=== PATIENT | female | born 1965 | race Caucasian/White ===

== ENCOUNTER → 2016-12-06 | Outpatient (CLI) | payer MEDICAID, OTHER | LOC: PREOP 05:43 | PROVIDERS: ATTEND Surgery | DX: Z01.818 Encounter for other preprocedural examination (principal); Z12.11 Encounter for screening for malignant neoplasm of colon ==

== ENCOUNTER → 2017-04-26 | Outpatient (CLI) | payer MEDICAID, OTHER ==
[~2017-04-26] VITALS: Ht 170.2 cm; Wt 95.3 kg
[~2017-04-26] MED LIST: BUPR150T14 PO; DULO30CA3 PO; HUM100VI15 SQ; INSU100V5 SQ; LISI40TA PO; LORA10TA7 PO; LOVA40TA2 PO; MELO15TA39 PO; ZOLP5TAB7 PO
== END ==
LOC: PREOP 08:33
PROVIDERS: ATTEND Surgery
DX: Z01.818 Encounter for other preprocedural examination (principal); K52.9 Noninfective gastroenteritis and colitis, unspecified; R19.4 Change in bowel habit

== ENCOUNTER 2017-05-02 12:22 | Day surgery (SDC) | payer MEDICAID, OTHER ==
[~2017-05-02] VITALS: Ht 170.2 cm; Wt 95.3 kg
--- OUTSIDE RECORDS SUMMARY | 2017-05-02 12:26 | XMS REPORT ---
Author JON Glover [facility] Address [address] [facility] [address] [place], [place] [id number] Care Team Providers Care Vp Production Name Role Phone JON KEY PCP Unavailable Allergies and Adverse Reactions Name Reaction Notes NO KNOWN DRUG ALLERGIES Plan of Treatment Not available. Medications Active Name Start Date Estimated Completion Date SIG Comments lovastatin 20 mg oral tablet 11/02/2015 03/31/2016 TAKE ONE TABLET BY MOUTH EVERY DAY WITH THE EVENING MEAL Levemir FlexTouch 100 unit/mL (3 mL) subcutaneous insulin pen 11/02/20152015 inject by subcutaneous route per prescriber's instructions. Insulin dosing requires individualization. for 30 days citalopram 20 mg oral tablet 11/02/2015 05/30/2016 take 1 tablet (20 mg) by oral route once daily for 30 days lisinopril 40 mg oral tablet 11/02/2015 take 1 tablet (40 mg) by oral route once daily loratadine 10 mg oral tablet 11/02/2015 take 1 tablet (10 mg) by oral route once daily Novolog 100 unit/mL subcutaneous solution 11/02/2015 inject by subcutaneous route per prescriber's instructions. Insulin dosing requires individualization. metformin 500 mg oral tablet 12/31/2015 TAKE TWO TABLETS BY MOUTH TWICE DAILY WITH MORNING AND EVENING MEALS OneTouch Ultra Test miscellaneous strip 12/31/2015 USE ONE STRIP TO CHECK GLUCOSE 4 TIMES DAILY OneTouch Delica Lancets 33 gauge miscellaneous misc 12/31/2015 USE ONE TO CHECK GLUCOSE 4 TIMES DAILY Name Start Date Expiration Date SIG Comments losartan 100 mg oral tablet 11/08/2012 12/08/2012 TAKE ONE TABLET BY MOUTH EVERY DAY glipizide 10 mg oral tablet 08/23/2012 09/22/2012 TAKE ONE TABLET BY MOUTH TWICE DAILY BEFORE MEALS Wellbutrin SR 150 mg oral tablet extended release 10/29/2015 01/27/2016 take 1 tablet (150 mg) by oral route 2 times per day for 30 days metformin 500 mg oral tablet 11/02/2015 12/02/2015 TAKE TWO TABLETS BY MOUTH TWICE DAILY WITH MORNING AND EVENING MEALS Problem List Description Status Onset Constipation Active Depression Active Diabetes Mellitus, Type II Active Diarrhea, Functional Active Essential Hypertension Active Kidney Calculus Active Thyroid disorder Active Hyperlipidemia, unspecified Active 07/26/2012 Vital Signs Date Time BP-Sys(mm[Hg] BP-Cristy(mm[Hg]) HR(bpm) RR(rpm) Temp WT HT HC BMI BSA BMI Percentile O2 Sat(%) 10/29/2015 3:20:00 PM 110 mmHg 60 mmHg 76 bpm 18 rpm 98.2 F 232 lbs 68 in 35.28 kg/m2 2.25 m2 97 % 12/25/2012 10:27:00 AM 115 mmHg 60 mmHg 70 bpm 16 rpm 96.4 F 233 lbs 69 in 34.4077 kg/m 2.2683 m 97 % 07/26/2012 9:22:00 AM 140 mmHg 64 mmHg 84 bpm 16 rpm 98.2 F 243 lbs 69 in 35.88 kg/m2 2.32 m2 98 % 07/10/2012 1:39:00 PM 152 mmHg 92 mmHg 91 bpm 18 rpm 97.3 F 242 lbs 69 in 35.7368 kg/m 2.3117 m 97 % Social History Name Description Comments Uses seatbelts Current every day Alcohol Use - Rare Tobacco Never smoker 8th grade Active but no formal exercise History of Procedures Date Ordered Description Order Status 01/29/2016 12:00 AM METABOLIC PANEL TOTAL CA Returned 07/17/2012 12:00 AM MICROALBUMIN SEMIQUANT Reviewed 07/17/2012 12:00 AM ROUTINE VENIPUNCTURE Reviewed 07/17/2012 12:00 AM COMPLETE CBC W/AUTO DIFF WBC Reviewed 07/17/2012 12:00 AM COMPREHEN METABOLIC PANEL Reviewed 07/17/2012 12:00 AM LIPID PANEL Reviewed 07/17/2012 12:00 AM GLYCOSYLATED HEMOGLOBIN TEST Reviewed 07/17/2012 12:00 AM ASSAY THYROID STIM HORMONE Reviewed Results Summary Data and Description Results 07/17/2012 4:42 PM WBC 7.6 RBC 4.78 HGB 14.0 g/dLHCT 41.80 %MCV 87.0 fLMCH 29.30 pgMCHC 33.50 g/dLRDW CV 13.10 %MPV 10.50 fLPLT 303 %NEUT 61.60 %%LYMP 29.0 %%MONO 6.60 %%EOS 2.10 %%BASO 0.70 %#NEUT 4.70 #LYMP 2.21 #MONO 0.50 #EOS 0.16 #BASO 0.05 TSH 1.70 uIU/mLCREAT UR 107.70 mg/dLMICROALBUMIN UR 48.0 ug/ mLALB:CREAT RATIO 45 TRIGLYCERIDES 211.0 mg/dLCHOLESTEROL 238.0 mg/dLHDL 35.0 mg /dLLDL 177.0 mg/dLGLUCOSE 226.0 mg/dLSODIUM 138.0 mmol/LPOTASSIUM 4.70 mmol/ LCHLORIDE 99.0 mmol/LCO2 27.0 mmol/LBUN 22.0 mg/dLCREATININE 0.80 mg/dLSGOT/AST 20.0 IU/LSGPT/ALT 26.0 IU/LALK PHOS 109.0 IU/LTOTAL PROTEIN 7.50 g/dLALBUMIN 4.20 g/dLTOTAL BILI 0.50 mg/dLCALCIUM 9.90 mg/dLeGFR 60 11/23/2015 5:01 PM WBC 11.4 RBC 4.73 HGB 13.80 g/dLHCT 44.0 %MCV 93.0 fLMCH 29.20 pgMCHC 31.40 g/dLRDW CV 12.80 %MPV 9.90 fLPLT 312 %NEUT 78.30 %%LYMP 15.20 %%MONO 5.0 %%EOS 0.50 %%BASO 0.40 %#NEUT 8.93 #LYMP 1.73 #MONO 0.57 #EOS 0.06 #BASO 0.05 MICROALBUMIN UR 11.0 ug/mLEst Avg Glucose 137.0 mg/dLGLUCOSE 137.0 mg/dLSODIUM 139.0 mmol/LPOTASSIUM 5.0 mmol/LCHLORIDE 102.0 mmol/LCO2 27.0 mmol/LBUN 29.0 mg/dLCREATININE 1.0 mg/dLSGOT/AST 17.0 IU/LSGPT/ALT 16.0 IU/LALK PHOS 111.0 IU/LTOTAL PROTEIN 7.80 g/dLALBUMIN 4.40 g/dLTOTAL BILI 0.70 mg/ dLCALCIUM 9.90 mg/dLeGFR 58 TRIGLYCERIDES 115.0 mg/dLCHOLESTEROL 200.0 mg/dLHDL 48.0 mg/dLLDL 138.0 mg/dLTSH 2.550 uIU/mL 01/29/2016 3:01 PM GLUCOSE 265.0 mg/dLSODIUM 138.0 mmol/LPOTASSIUM 4.70 mmol/ LCHLORIDE 104.0 mmol/LCO2 21.0 mmol/LBUN 21.0 mg/dLCREATININE 1.10 mg/dLCALCIUM 9.40 mg/dLeGFR 52 Est Avg Glucose 148.5 mg/dL History Of Immunizations Not available. History of Past Illness Name Date of Onset Comments Essential Hypertension Diabetes Mellitus, Type II Kidney Calculus Depression Constipation Diarrhea, Functional Thyroid disorder Hyperlipidemia, unspecified 07/26/2012 Anxiety Essential Hypertension Jul 10 2012 1:41PM Diabetes Mellitus, Type II Jul 10 2012 1:41PM Hyperlipidemia, unspecified Jul 10 2012 1:41PM Depressive Disorder Jul 10 2012 1:41PM Body Mass Index [BMI]; body mass index between 30-39, adult; body mass index 31.0-31.9, adult Jul 10 2012 1:41PM Hypertension Jul 17 2012 11:31AM Diabetes Mellitus, Type II Jul 17 2012 11:31AM Hyperlipidemia Jul 17 2012 11:31AM Hypothyroidism, Acquired Jul 17 2012 11:31AM Essential Hypertension Jul 26 2012 9:23AM Diabetes Mellitus, Type II Jul 26 2012 9:23AM Hyperlipidemia, unspecified Jul 26 2012 9:23AM Obesity Jul 26 2012 9:23AM Exercise Counseling Jul 26 2012 9:23AM Dietary Counseling Jul 26 2012 9:23AM Depression Jul 26 2012 9:23AM General Medical Exam, Adult Dec 25 2012 10:28AM Essential Hypertension Oct 29 2015 3:21PM Type 2 diabetes mellitus with hyperglycemia Oct 29 2015 3:21PM Depressive Disorder Oct 29 2015 3:21PM Hyperlipidemia, unspecified Oct 29 2015 3:21PM Depression Oct 29 2015 3:21PM Hypertension Nov 23 2015 9:56AM Diabetes Mellitus, Type II Nov 23 2015 9:56AM Hyperlipidemia Nov 23 2015 9:56AM Hypothyroidism, Acquired Nov 23 2015 9:56AM Hypertension Jan 29 2016 8:57AM Diabetes Mellitus, Type II Jan 29 2016 8:57AM Hyperlipidemia Jan 29 2016 8:57AM Hypothyroidism, Acquired Jan 29 2016 8:57AM Payers Insurance Name Company Name Plan Name Plan Number Policy Number Policy Group Number Start Date [facility] - RHC - Community Plan of [facility] Comm [id number] N/A [employer], [place] [id number] N/A [facility] PMRV PHYS/DS PMRV PHYS AND DS N/A History of Encounters Visit Date Visit Type Provider 01/29/2016 Office visit JON HARDY 11/23/2015 Office visit JON HARDY 10/29/2015 Office visit JON HARDY 12/25/2012 Office visit JON HARDY 07/26/2012 Office visit JON HARDY 07/17/2012 Office visit JON HARDY 07/10/2012 Office visit JON HARDY
--- OUTSIDE RECORDS SUMMARY | 2017-05-02 12:27 | XMS REPORT ---
Author JON Glover [facility] Address [address] [facility] [address] [place], [place] [id number] Care Team Providers Care Director Of Market Research Name Role Phone JON KEY PCP Unavailable Allergies and Adverse Reactions Name Reaction Notes NO KNOWN DRUG ALLERGIES Plan of Treatment Planned Activity Comments Planned Date Planned Time Plan/Goal METABOLIC PANEL TOTAL CA 01/29/2016 12:00 AM Medications Active Name Start Date Estimated Completion [...] of Procedures Date Ordered Description Order Status 07/17/2012 12:00 AM MICROALBUMIN SEMIQUANT Reviewed 07/17/2012 [...] mg/dLHDL 48.0 mg/dLLDL 138.0 mg/dLTSH 2.550 uIU/mL History Of Immunizations Not available. History of [...] Policy Number Policy Group Number Start Date [facility] - C - Community Plan of [facility] Comm [id number] N/A [employer] Monitor, [place] [id number] N/A [facility] PMRV PHYS/DS PMRV PHYS AND DS N/A History of Encounters Visit Date Visit Type Provider 01/29/2016 Office visit JON HARDY 11/23/2015 Office visit JON HARDY 10/29/2015 Office visit JON HARDY 12/25/2012 Office visit JON HARDY 07/26/2012 Office visit JON HARDY 07/17/2012 Office visit JON HARDY 07/10/2012 Office visit JON HARDY
--- OUTSIDE RECORDS SUMMARY | 2017-05-02 12:27 | XMS REPORT ---
Author Author JON KEY [facility] Address [address] [facility] [address] [place], [place] [id number] Care Team Providers Care Auto Phone Installer Name Role Phone JON KEY PCP Unavailable Allergies and Adverse Reactions Name Reaction Notes NO KNOWN DRUG ALLERGIES Plan of Treatment Not available. Medications Active Name Start Date Estimated Completion Date SIG Comments Wellbutrin SR 150 mg oral tablet extended release 10/29/2015 01/27/2016 take 1 tablet (150 mg) by oral route 2 times per day for 30 days lovastatin 20 mg oral tablet 11/02/2015 03/31/2016 TAKE ONE TABLET BY MOUTH EVERY DAY WITH THE EVENING MEAL metformin 500 mg oral tablet 11/02/2015 12/02/2015 TAKE TWO TABLETS BY MOUTH TWICE DAILY WITH MORNING AND EVENING MEALS Levemir FlexTouch 100 unit/mL (3 mL) subcutaneous [...] per prescriber's instructions. Insulin dosing requires individualization. Name Start Date Expiration Date SIG Comments losartan 100 mg oral tablet 11/08/2012 12/08/2012 TAKE ONE TABLET BY MOUTH EVERY DAY glipizide 10 mg oral tablet 08/23/2012 09/22/2012 TAKE ONE TABLET BY MOUTH TWICE DAILY BEFORE MEALS Problem List Description Status Onset Constipation [...] g/dLTOTAL BILI 0.50 mg/dLCALCIUM 9.90 mg/dLeGFR 60 GLYCOHEMOGLOBIN A1C 9.70 % History Of Immunizations Not available. History of [...] 9:56AM Hypothyroidism, Acquired Nov 23 2015 9:56AM Payers Insurance Name Company Name Plan Name Plan Number Policy Number Policy Group Number Start Date [facility] - RHC - Community Plan of [facility] Comm [id number] N/A [employer], INc [id number] N/A [facility] PMRV PHYS/DS PMRV PHYS AND DS N/A History of Encounters Visit Date Visit Type Provider 11/23/2015 Office visit JON HARDY 10/29/2015 Office visit JON HARDY 12/25/2012 Office visit JON HARDY 07/26/2012 Office visit JON HARDY 07/17/2012 Office visit JON HARDY 07/10/2012 Office visit JON HARDY
--- OUTSIDE RECORDS SUMMARY | 2017-05-02 12:27 | XMS REPORT ---
Author Author JON KEY [facility] Address [address] [facility] [address] [place], [place] [phone] Care Team Providers Care Imaging Engineer Name Role Phone JON KEY PCP Unavailable [...] 2015 3:21PM Depression Oct 29 2015 3:21PM Payers Insurance Name Company Name Plan Name Plan Number Policy Number Policy Group Number Start Date [facility] Comm [id number] N/A [employer], [place] [id number] N/A [facility] PMRV PHYS/DS PMRV PHYS AND DS N/A History of Encounters Visit Date Visit Type Provider 10/29/2015 Office visit JON HARDY 12/25/2012 Office visit JON HARDY 07/26/2012 Office visit JON HARDY 07/17/2012 Office visit JON HARDY 07/10/2012 Office visit JON HARDY
--- OUTSIDE RECORDS SUMMARY | 2017-05-02 12:28 | XMS REPORT ---
Author JON Glover [facility] Address [address] [facility] [address] [facility] [address] [place], [place] [phone] Care Team Providers Care Sanitation Technician Name Role Phone JON KEY PCP Unavailable Allergies and Adverse Reactions Name Reaction Notes NO KNOWN DRUG ALLERGIES Plan of Treatment Not available. Medications Active Name Start Date Estimated Completion Date SIG Comments Novolog 100 unit/mL subcutaneous solution 11/02/2015 inject [...] ONE TO CHECK GLUCOSE 4 TIMES DAILY bupropion HCl 150 mg oral tablet extended release 02/26/2016 TAKE ONE TABLET BY MOUTH TWICE DAILY meloxicam 15 mg oral tablet 04/18/2016 TAKE ONE TABLET BY MOUTH ONCE DAILY Levemir FlexTouch 100 unit/mL (3 mL) subcutaneous insulin pen 06/03/2016 INJECT 60 UNITS SUBCUTANEOUSLY TWICE DAILY loratadine 10 mg oral tablet 06/03/2016 take 1 tablet (10 mg) by oral route once daily Victoza 3-Jeramie 0.6 mg/0.1 mL (18 mg/3 mL) subcutaneous pen injector 07/26/2016 inject 1.2 mg by subcutaneous route once daily TobraDex 0.3-0.1 % ophthalmic drops,suspension 07/26/2016 instill 1 drop into affected eye(s) by ophthalmic route every 6 hours citalopram 20 mg Oral tablet 07/26/2016 02/21/2017 take 1 tablet (20 mg) by oral route once daily for 30 days lisinopril 40 mg oral tablet 07/26/2016 take 1 tablet (40 mg) by oral route once daily lovastatin 20 mg oral tablet 07/26/2016 12/23/2016 TAKE ONE TABLET BY MOUTH EVERY DAY WITH THE EVENING MEAL cyclobenzaprine 10 mg oral tablet 07/26/2016 TAKE ONE TABLET BY MOUTH THREE TIMES DAILY NEEDED FOR MUSCLE SPASM Name Start Date Expiration Date SIG Comments [...] Insulin dosing requires individualization. for 30 days Problem List Description Status Onset Constipation Active Depression Active Diabetes Mellitus, Type II Active Diarrhea, Functional Active Essential hypertension Active Kidney Calculus Active Thyroid disorder Active Hyperlipidemia, unspecified Active 07/26/2012 Osteoarthrosis, generalized, multiple sites Active 07/27/2016 Primary insomnia Active 07/27/2016 Muscle spasm of back Active 07/27/2016 Vital Signs Date Time BP-Sys(mm[Hg] BP-Cristy(mm[Hg]) HR(bpm) RR(rpm) Temp WT HT HC BMI BSA BMI Percentile O2 Sat(%) 07/26/2016 1:08:00 PM 120 mmHg 82 mmHg 84 bpm 18 rpm 98 F 222.312 lbs 66 in 35.88 kg/m2 2.17 m2 98 % 05/26/2016 10:39:00 AM 108 mmHg 72 mmHg 89 bpm 16 rpm 97.1 F 225 lbs 68 in 34.2108 kg/m 2.2128 m 97 % 10/29/2015 3:20:00 PM 110 mmHg 60 mmHg [...] %MCV 87.0 fLMCH 29.30 pgMCHC 33.50 g/dLRDW SD 42 RDW CV 13.10 %MPV 10.50 fLPLT 303 NRBC# 0.15 NRBC% 1.9 %NEUT 61.60 %%LYMP 29.0 %%MONO 6.60 %%EOS 2.10 %%BASO 0.70 %#NEUT 4.70 #LYMP 2.21 #MONO 0.50 #EOS 0.16 #BASO 0.05 MANUAL DIFF SEE BELOW SEGS 65 LYMPHS 30 MONOS 5 FREE T4 0.98 TSH 1.70 uIU/mLCREAT UR 107.70 mg/dLMICROALBUMIN UR 48.0 ug/mLALB:CREAT RATIO 45 TRIGLYCERIDES 211.0 mg/dLCHOLESTEROL 238.0 mg/ dLHDL 35.0 mg/dLTOT CHOL/HDL 6.8 LDL 177.0 mg/dLGLUCOSE 226.0 mg/dLSODIUM 138.0 mmol/LPOTASSIUM 4.70 mmol/LCHLORIDE 99.0 mmol/LCO2 27.0 mmol/LBUN 22.0 mg/ dLCREATININE 0.80 mg/dLSGOT/AST 20.0 IU/LSGPT/ALT 26.0 IU/LALK PHOS 109.0 IU/ LTOTAL PROTEIN 7.50 g/dLALBUMIN 4.20 g/dLTOTAL BILI 0.50 mg/dLCALCIUM 9.90 mg/ dLAGE 47 GFR NonAA 76 GFR AA 92 eGFR 60 eGFR AA* 60 GLYCOHEMOGLOBIN A1C 9.70 % 11/23/2015 5:01 PM WBC 11.4 RBC 4.73 HGB 13.80 g/dLHCT 44.0 %MCV 93.0 fLMCH 29.20 pgMCHC 31.40 g/dLRDW SD 44 RDW CV 12.80 %MPV 9.90 fLPLT 312 NRBC# 0.00 NRBC% 0.0 %NEUT 78.30 %%LYMP 15.20 %%MONO 5.0 %%EOS 0.50 %%BASO 0.40 %#NEUT 8.93 #LYMP 1.73 #MONO 0.57 #EOS 0.06 #BASO 0.05 MANUAL DIFF NOT IND MICROALBUMIN UR 11.0 ug/mLHGB A1C 6.40 %Est Avg Glucose 137.0 mg/dLGLUCOSE 137.0 mg/dLSODIUM 139.0 mmol/LPOTASSIUM 5.0 mmol/LCHLORIDE 102.0 mmol/LCO2 27.0 mmol/LBUN 29.0 mg/dLCREATININE 1.0 mg/dLSGOT/AST 17.0 IU/LSGPT/ALT 16.0 IU/LALK PHOS 111.0 IU/LTOTAL PROTEIN 7.80 g/dLALBUMIN 4.40 g/dLTOTAL BILI 0.70 mg/ dLCALCIUM 9.90 mg/dLAGE 50 GFR NonAA 58 GFR AA 70 eGFR 58 eGFR AA* >60 TRIGLYCERIDES 115.0 mg/dLCHOLESTEROL 200.0 mg/dLHDL 48.0 mg/dLTOT CHOL/HDL 4.2 LDL 138.0 mg/dLFREE T4 0.82 TSH 2.550 uIU/mL 01/29/2016 3:01 PM GLUCOSE 265.0 mg/dLSODIUM 138.0 mmol/LPOTASSIUM 4.70 mmol/ LCHLORIDE 104.0 mmol/LCO2 21.0 mmol/LBUN 21.0 mg/dLCREATININE 1.10 mg/dLCALCIUM 9.40 mg/dLAGE 50 GFR NonAA 52 GFR AA 63 eGFR 52 eGFR AA* >60 HGB A1C 6.80 %Est Avg Glucose 148.5 mg/dL History Of Immunizations Not available. History of Past Illness Name Date of Onset Comments Essential hypertension Diabetes Mellitus, Type II Kidney Calculus Depression Constipation Diarrhea, Functional Thyroid disorder Hyperlipidemia, unspecified 07/26/2012 Anxiety Osteoarthrosis, generalized, multiple sites 07/27/2016 Primary insomnia 07/27/2016 Muscle spasm of back 07/27/2016 Essential Hypertension Jul 10 2012 1:41PM Diabetes [...] 8:57AM Hypothyroidism, Acquired Jan 29 2016 8:57AM Type 2 diabetes mellitus with hyperglycemia May 26 2016 10:39AM Hyperlipidemia, unspecified May 26 2016 10:39AM Recurrent major depressive disorder, in partial remission May 26 2016 10:39AM Thyroid disorder May 26 2016 10:39AM Moderate Essential Hypertension Stable Jul 26 2016 1:09PM Type 2 diabetes mellitus with hyperglycemia Jul 26 2016 1:09PM superintendent terminal (current) use of insulin Jul 26 2016 1:09PM Mild Osteoarthrosis, generalized, multiple sites Stable Jul 26 2016 1:09PM Generalized anxiety disorder Jul 26 2016 1:09PM Moderate Chronic Depressive Disorder Stable Jul 26 2016 1:09PM Primary insomnia Jul 26 2016 1:09PM Depression Jul 26 2016 1:09PM Hypercholesteremia Jul 26 2016 1:09PM Mild Chronic Muscle spasm of back Jul 26 2016 1:09PM Payers Insurance Name Company Name Plan Name Plan Number Policy Number Policy Group Number Start Date [facility] - [facility] - Community Plan of [facility] Comm [id number] N/A [employer], [place] [id number] N/A [facility] PMRV PHYS/DS PMRV PHYS AND DS N/A History of Encounters Visit Date Visit Type Provider 07/26/2016 Office visit JON HARDY 05/26/2016 Office visit JON HARDY 01/29/2016 Office visit JON HARDY 11/23/2015 Office visit JON HARDY 10/29/2015 Office visit JON HARDY 12/25/2012 Office visit JON HARDY 07/26/2012 Office visit JON HARDY 07/17/2012 Office visit JON HARDY 07/10/2012 Office visit JON HARDY
--- OUTSIDE RECORDS SUMMARY | 2017-05-02 12:28 | XMS REPORT ---
Author Author JON KEY [facility] Address [address] [place], [place] [phone] Care Team Providers Care Sewing Trimmer Name Role Phone JON KEY PCP Unavailable [...] 9.90 mg/dLeGFR 60 GLYCOHEMOGLOBIN A1C 9.70 % 11/23/2015 5:01 PM WBC 11.4 RBC 4.73 HGB 13.80 g/dLHCT 44.0 %MCV 93.0 fLMCH 29.20 pgMCHC 31.40 g/dLRDW CV 12.80 %MPV 9.90 fLPLT 312 %NEUT 78.30 %%LYMP 15.20 %%MONO 5.0 %%EOS 0.50 %%BASO 0.40 %#NEUT 8.93 #LYMP 1.73 #MONO 0.57 #EOS 0.06 #BASO 0.05 MICROALBUMIN UR 11.0 ug/mLHGB A1C 6.40 %Est Avg Glucose 137.0 mg /dLGLUCOSE 137.0 mg/dLSODIUM 139.0 mmol/LPOTASSIUM 5.0 mmol/LCHLORIDE 102.0 mmol /LCO2 27.0 mmol/LBUN 29.0 mg/dLCREATININE 1.0 mg/dLSGOT/AST 17.0 IU/LSGPT/ALT 16.0 IU/LALK PHOS 111.0 IU/LTOTAL PROTEIN 7.80 g/dLALBUMIN 4.40 g/dLTOTAL BILI 0.70 mg/dLCALCIUM 9.90 mg/dLeGFR 58 TRIGLYCERIDES 115.0 mg/dLCHOLESTEROL 200.0 [...] Policy Number Policy Group Number Start Date [facility] - [facility] - [facility] Plan of [facility] Comm [id number] N/A [employer] [place] [id number] N/A [facility] PMRV PHYS/DS PMRV PHYS AND DS N/A History of Encounters Visit Date Visit Type Provider 11/23/2015 Office visit JON HARDY 10/29/2015 Office visit JON HARDY 12/25/2012 Office visit JON HARDY 07/26/2012 Office visit JON HARDY 07/17/2012 Office visit JON HARDY 07/10/2012 Office visit JON HARDY
--- OUTSIDE RECORDS SUMMARY | 2017-05-02 12:29 | XMS REPORT ---
Author JON Glover [facility] Address [address] [facility] [address] [place], [place] [id number] Care Team Providers Care Motor Vehicle License Clerk Name Role Phone JON KEY PCP Unavailable Allergies and Adverse Reactions Name Reaction Notes NO KNOWN DRUG ALLERGIES Plan of Treatment Not available. Medications Active Name Start Date Estimated Completion Date SIG Comments lisinopril 40 mg oral tablet 11/02/2015 take 1 tablet (40 mg) by oral route once daily Novolog [...] ONE TO CHECK GLUCOSE 4 TIMES DAILY loratadine 10 mg oral tablet 02/26/2016 take 1 tablet (10 mg) by oral route once daily bupropion HCl 150 mg oral tablet extended release 02/26/2016 TAKE ONE TABLET BY MOUTH TWICE DAILY meloxicam 15 mg oral tablet 04/18/2016 TAKE ONE TABLET BY MOUTH ONCE DAILY cyclobenzaprine 10 mg oral tablet 04/18/2016 TAKE ONE TABLET BY MOUTH THREE TIMES [...] oral route once daily for 30 days Problem List Description Status Onset Constipation Active Depression Active Diabetes Mellitus, Type II Active Diarrhea, Functional Active Essential Hypertension Active Kidney Calculus Active Thyroid disorder Active Hyperlipidemia, unspecified Active 07/26/2012 Vital Signs Date Time BP-Sys(mm[Hg] BP-Cristy(mm[Hg]) HR(bpm) RR(rpm) Temp WT HT HC BMI BSA BMI Percentile O2 Sat(%) 05/26/2016 10:39:00 AM 108 mmHg 72 mmHg 89 bpm 16 rpm 97.1 F 225 lbs 68 in 34.21 kg/m2 2.21 m2 97 % 10/29/2015 3:20:00 PM 110 mmHg 60 mmHg 76 bpm 18 rpm 98.2 F 232 lbs 68 in 35.2751 kg/m 2.247 m 97 % 12/25/2012 10:27:00 AM 115 mmHg 60 mmHg 70 bpm 16 rpm 96.4 F 233 lbs 69 in 34.41 kg/m2 2.27 m2 97 % 07/26/2012 9:22:00 AM 140 mmHg 64 mmHg 84 bpm 16 rpm 98.2 F 243 lbs 69 in 35.8845 kg/m 2.3165 m 98 % 07/10/2012 1:39:00 PM 152 mmHg 92 mmHg 91 bpm 18 rpm 97.3 F 242 lbs 69 in 35.74 kg/m2 2.31 m2 97 % Social History Name Description Comments [...] 10:39AM Thyroid disorder May 26 2016 10:39AM Payers Insurance Name Company Name Plan Name Plan Number Policy Number Policy Group Number Start Date [facility] - [facility] - [facility] Plan of [facility] Comm [id number] N/A [employer] [place] [id number] N/A [facility] PMRV PHYS/DS PMRV PHYS AND DS N/A History of Encounters Visit Date Visit Type Provider 05/26/2016 Office visit JON HARDY 01/29/2016 Office visit JON HARDY 11/23/2015 Office visit JON HARDY 10/29/2015 Office visit JON HARDY 12/25/2012 Office visit JON HARDY 07/26/2012 Office visit JON HARDY 07/17/2012 Office visit JON HARDY 07/10/2012 Office visit JON HARDY
--- OUTSIDE RECORDS SUMMARY | 2017-05-02 12:29 | XMS REPORT ---
Author Author JON KEY [facility] Address [address] [place], [place] [id number] Care Team Providers Care Cnc Milling Machine Operator Name Role Phone JON KEY PCP Unavailable [...] Policy Number Policy Group Number Start Date [facility] - [facility] - [facility] Plan of [facility] Comm [id number] N/A [employer], INc [id number] N/A [facility] PMRV PHYS/DS PMRV PHYS AND DS N/A History of Encounters Visit Date Visit Type Provider 11/23/2015 Office visit JON HARDY 10/29/2015 Office visit JON HARDY 12/25/2012 Office visit JON HARDY 07/26/2012 Office visit JON HARDY 07/17/2012 Office visit JON HARDY 07/10/2012 Office visit JON HARDY
--- OUTSIDE RECORDS SUMMARY | 2017-05-02 12:30 | XMS REPORT ---
Author JON Glover [facility] Address [address] [place], [place] [phone] Care Team Providers Care [employer] Rep Name Role Phone JON EKY PCP Unavailable Allergies and Adverse Reactions Name [...] TAKE ONE TABLET BY MOUTH TWICE DAILY Name Start Date Expiration Date SIG [...] Policy Number Policy Group Number Start Date [facility] - [facility] - [facility] Comm [id number] N/A [employer] [place] [id number] N/A [facility] PMRV PHYS/DS PMRV PHYS AND DS N/A History of Encounters Visit Date Visit Type Provider 01/29/2016 Office visit JON HARDY 11/23/2015 Office visit JON HARDY 10/29/2015 Office visit JON HARDY 12/25/2012 Office visit JON HARDY 07/26/2012 Office visit JON HARDY 07/17/2012 Office visit JON HARDY 07/10/2012 Office visit JON HARDY
[2017-05-02] MEDS ORDERED: LACTATED RINGERS 1,000 ML IV STA (12:31)
[2017-05-02] MEDS ORDERED: METF500T4 PO (12:42)
[2017-05-02 12:45] VITALS: BP 123/79
[2017-05-02] MEDS ORDERED: proPOfol 200 MG/20 ML (DIPRIVAN) VIAL IV ONE (13:52)
[2017-05-02] MEDS ORDERED: MIDAZOLAM 2 MG/2 ML (VERSED) VIAL ONE (13:53)
--- NOTE | 2017-05-02 14:00 | Progress Note-Pre Operative ---
Pre-Operative Progress Note H&P Reviewed The H&P was reviewed, patient examined and no changes noted. Date Seen by Provider: May 02, 2017 Time Seen by Provider: 13:59 Date H&P Reviewed: May 02, 2017 Time H&P Reviewed: 14:00 Pre-Operative Diagnosis: change in bowel habits TANIYA MCKINLEY DO May 02, 2017 2:00 pm
--- NOTE | 2017-05-02 14:35 | Progress Note-Post Operative ---
Post-Operative Progess Note Surgeon (s)/Creel Selector (s) Surgeon TANIYA MCKINLEY DO Creel Selector: na Pre-Operative Diagnosis change in bowel habits Post-Operative Diagnosis colon polyp x 2 Procedure & Operative Findings Date of Procedure 05/02/17 Procedure Performed/Findings colonoscopy with hot bx polypectomy x 2 and random cold biopsies Anesthesia Type per radiology receptionist Estimated Blood Loss Estimated blood loss (mL): none Specimens/Packing Specimens Removed ascending and sigmoid polyp, random colon TANIYA MCKINLEY DO May 02, 2017 2:35 pm
--- NOTE | 2017-05-02 14:37 | Discharge Inst-Simple/Standard ---
Discharge Inst-Standard Patient Instructions/Follow Up Plan of Care/Instructions/FU: 2 weeks brandon Activity as Tolerated: Yes Discharge Diet: Regular Diet TANIYA MCKINLEY DO May 02, 2017 2:37 pm
[2017-05-02 15:00] VITALS: BP 95/50
[2017-05-02 15:30] VITALS: BP 105/63
[2017-05-02 15:35] VITALS: BP 105/63
--- NOTE | 2017-05-02 22:38 | OPERATIVE REPORT ---
DATE OF SERVICE: 05/02/2017 PREOPERATIVE DIAGNOSIS: Change in bowel habits. POSTOPERATIVE DIAGNOSIS: Ascending and sigmoid colon polyps. PROCEDURE: Colonoscopy with hot biopsy polypectomy x2 and random colon biopsies. SURGEON: Taniya Stanley DO. ANESTHESIA: Per DIRECTOR OF SPORTS PERFORMANCE. ESTIMATED BLOOD LOSS: None. COMPLICATIONS: None. INDICATIONS: The patient is a 52-year-old female with change in bowel habits. She has some chronic diarrhea. She understands risks and benefits of the procedure and wished to proceed with procedure. Consent was signed in the chart. PROCEDURE: The patient was taken to the endoscopy suite, placed in left lateral recumbent position. Timeout was performed. Scope was inserted in the rectum and advanced all the way to the cecum with minimal difficulty. Prep was adequate with irrigation and suction. There were no polyps, masses or ulcerations in the cecum. The scope was slowly retracted back in the ascending colon. A small polyp was present, which hot biopsy polypectomy was performed. Scope was continued slowly retracted back. There were no polyps, masses or ulcerations in the transverse colon or descending colon. As the scope was being retracted, random cold biopsies were obtained. Within the sigmoid, another small polyp was present, which hot biopsy polypectomy was performed. Scope was continuously retracted back into the rectum where it was also retroflexed noting no other pathology. Scope was returned to its normal position, slowly withdrawn until completely removed. RECOMMENDATIONS: The patient will follow up in the office in 2 weeks to discuss pathology results and see how she is doing at that time. The patient will need repeat colonoscopy in 5 years due to polyps. If she has any problems prior to that, she should be reevaluated at that time. Job ID: [id number] DocumentID: [id number] Dictated Date: 05/02/2017 14:39:42 Overnight Caregiver Date: 05/02/2017 20:01:15 Dictated By: TANIYA STANLEY DO
== END 2017-05-02 15:35 | disposition home or self-care (01) ==
LOC: ENDO 12:22
PROVIDERS: ATTEND Surgery
DX: D12.2 Benign neoplasm of ascending colon (principal); K63.5 Polyp of colon; E11.9 Type 2 diabetes mellitus without complications; E78.5 Hyperlipidemia, unspecified; I10 Essential (primary) hypertension; Z79.4 Long term (current) use of insulin; Z79.899 Other long term (current) drug therapy; Z88.8 Allergy status to other drugs, medicaments and biological substances
CPT/HCPCS: 82962; 88305